=== PATIENT | female | born 1980 | race Hispanic/Latino ===

== ENCOUNTER 2025-02-12 12:42 | Emergency (ER) | payer SELFPAY ==
[~2025-02-12] VITALS: Ht 162.6 cm; Wt 99.8 kg
--- NOTE | 2025-02-12 13:01 | ERN ---
ED Note History of Present Illness Stated Complaint: PELVIC PAIN Chief Complaint: Pelvic Pain Time Seen by MD: 12:55 Dictation: PATIENT IS A 44-YEAR-OLD FEMALE HERE WITH COMPLAINTS OF HOLDING HER URINE YESTERDAY FOR MORE THAN 2 HOURS AND THEN WHEN SHE URINATED SHE SAID SHE HAD A BURNING SENSATION. SHE STATES A BURNING SENSATION HAS CONTINUED NO NAUSEA VOMITING NO FEVER NO CHILLS. SHE STATES SHE TOOK SOME MEDICATION YESTERDAY FOR PAIN NOTHING TODAY. HER PRIMARY CARE DOCTOR IS MARIBELL MONTEIRO, HAS NOT BEEN TO SEE THEM YET. Allergies: Coded Allergies: No Known Allergies (Unverified Allergy, Unknown, 02/12/25) Past Medical History Past Medical History: Kidney Stone, UTI Surgical History: None History: Not Applicable RN Note Reviewed/Agreed w/PFSH: Yes Review of System Dictation CONSTITUTIONAL: NEGATIVE EXCEPT FOR HPI HEAD/FACE: NEGATIVE EXCEPT FOR HPI EENT: NEGATIVE EXCEPT FOR HPI RESPIRATORY: NEGATIVE EXCEPT FOR HPI GASTROINTESTINAL/ABDOMINAL: NEGATIVE EXCEPT FOR HPI GENITOURINARY: NEGATIVE EXCEPT FOR HPI DYSURIA WITH SUPRAPUBIC TENDERNESS MUSCULOSKELETAL: NEGATIVE EXCEPT FOR HPI INTEGUMENTARY: NEGATIVE EXCEPT FOR HPI NEUROLOGICAL/PSYCH: NEGATIVE EXCEPT FOR HPI HEMATOLOGIC/LYMPHATIC: NEGATIVE EXCEPT FOR HPI ALL SYSTEMS NEGATIVE, EXCEPT NOTED ABOVE. 13 POINT REVIEW OF SYSTEMS ASSESSED AND ALL NEGATIVE EXCEPT FOR ABOVE. Initial Vital Sign VS Vital Signs Date Time Temp Pulse Resp B/P (MAP) Pulse Ox O2 Delivery O2 Flow Rate FiO2 02/12/25 12:46 98.8 89 20 174/92 98 Room Air 0 Physical Exam Dictation VITAL SIGNS REVIEWED GENERAL APPEARANCE: ALERT, ORIENTED X 3, MILD ACUTE DISTRESS, WELL DEVELOPED, NOURISHED. HEAD AND FACE: NON-TRAUMATIC. EYES: PERRL, PINK CONJUNCTIVAS, EYELID NO TRAUMA, ANTERIOR CHAMBER WITH ARCUS SENILIS. EARS: PINNAS INTACT AND NO SIGNS OF TRAUMA OR ERYTHEMA EAR CANALS CLEAR AND NO DISCHARGE TM NO ERYTHEMA NOSE: NO DISCHARGE, NO BLEEDING. OROPHARYNX: MOUTH NORMAL, TONGUE PINK, PHARYNX CLEAR,NO ERYTHEMA, TONSILS NO EXUDATES, NO ABSCESSES NOTED, MUCOUS MEMBRANE MOIST NECK: SUPPLE, NON-TENDER, NO THYROMEGALY, NO MASSES, NO JVD, NO BRUITS BREAST:DEFERRED CHEST:NO TENDERNESS, NO CREPITUS, NO PARADOXICAL MOVEMENT, NO RETRACTIONS LUNGS:CLEAR, WELL-VENTILATED, SYMMETRIC, NO RALES, NO WHEEZING, NO RHONCHI, NO STRIDOR, GOOD BREATH SOUNDS BILATERALLY HEART: REGULAR RATE, REGULAR RHYTHM, NO MURMUR, NO GALLOPS VASCULAR: NO PERIPHERAL EDEMA, ABDOMEN: SOFT, POSITIVE BOWEL SOUNDS, NONDISTENDED, NO GUARDING, NONTENDER, NO REBOUND, NO MASSES NO HEPATOMEGALY, NO SPLENOMEGALY, NO HAWKINS'S SIGN, NO HERNIAS. RECTAL: DEFERRED GENITAL: DEFERRED SUPRAPUBIC TENDERNESS. NEUROLOGICAL: NORMAL SPEECH, MOTOR FUNCTION INTACT, SENSORY FUNCTION INTACT MUSCULOSKELETAL: NECK NONTENDER, FULL RANGE OF MOTION, BACK NONTENDER, FULL RANGE OF MOTION, EXTREMITIES: NONTENDER, FULL RANGE OF MOTION SKIN: COLOR PINK, DRY, NO TURGOR, NO RASH, NO LACERATIONS, NO ABRASIONS, NO CONTUSIONS. LYMPHATIC: DEFERRED Results (Laboratory/Radiology) Laboratory/Radiology Laboratory Tests Test 02/12/25 13:01 Urine Color LIGHT-YELLOW (YELLOW) Urine Appearance CLEAR (CLEAR) Urine pH 6.5 (5.0-8.0) Urine Specific [place] 1.018 (1.001-1.031) Urine Protein NEGATIVE mg/dL (NEGATIVE) Urine Glucose (UA) NEGATIVE mg/dL (NEGATIVE) Urine Ketones NEGATIVE mg/dL (NEGATIVE) Urine Occult Blood SMALL (NEGATIVE) H Urine Nitrate NEGATIVE (NEGATIVE) Urine Bilirubin NEGATIVE mg/dL (NEGATIVE) Urine Urobilinogen 0.2 mg/dL (0.2-1.0) Urine Leukocyte Esterase NEGATIVE [place]/uL Urine RBC 11-25 /HPF (0-1) H Urine WBC None /HPF (0-1) Urine Squamous Epithelial Cells RARE /HPF (0-2) Urine Bacteria None /HPF (None Seen) Labs Reviewed?: Yes ED Course ED Course Orders Procedure Category Date Status Time Urinalysis Profile LAB 02/12/25 Complete 12:59 Ibuprofen 800 Mg Tab PHA 02/12/25 Complete (Motrin) 13:00 Phenazopyridine Hcl PHA 02/12/25 Complete 200 Mg Tab (Pyridium 13:00 Current Medications Medications (Trade) Dose Ordered Sig/Nicki Route PRN Reason Start Time Stop Time Status Last Admin Dose Admin Ibuprofen (moTRIN) 800 mg ONCE ONCE PO 02/12/25 13:00 02/12/25 13:01 DC 02/12/25 13:29 Phenazopyridine HCl (PYRIdium HCL 200 MG TAB) 200 mg ONCE ONCE PO 02/12/25 13:00 4/8/25 13:01 DC 02/12/25 13:29 Vital Signs Date Time Temp Pulse Resp B/P (MAP) Pulse Ox O2 Delivery O2 Flow Rate FiO2 02/12/25 12:46 98.8 89 20 174/92 98 Room Air 0 1410/PATIENT HAS MICROSCOPIC HEMATURIA ONLY NO INFECTION HOWEVER SHE ALSO HAS BLOOD PRESSURE 174/92 AND STATES WHEN I GO TO MY DOCTOR'S OFFICE OVER THE LAST COUPLE OF YEARS THEY ALWAYS TOLD ME IT IS A LITTLE HIGH BUT THEY NEVER TREATED. I ADVISED HER THAT CHRONIC HYPERTENSION WOULD AFFECT IN ORGANS AND THAT WE NEED TO TREAT THIS. I WOULD SEND HER HOME WITH A ENALAPRIL AND PYRIDIUM TOLD HER TO FOLLOW UP WITH HER DOCTOR AT [facility] Medical Decision Making MDM MEDICAL DECISION-MAKING WOUND WAS BASED ON URINALYSIS AND TREATMENT FOR DYSURIA. PATIENT STATES SHE IS IN NO PAIN AT THIS TIME SHE IS AWARE OF HER BLOOD PRESSURE NEED TO FOLLOW UP WITH HER DOCTOR IN THE NEXT 1-2 DAYS AND TAKE ENALAPRIL DIRECTED. DX & DISP Disposition: Discharge Departure Impression: Primary Impression: Uncontrolled hypertension Additional Impressions: Microscopic hematuria, Dysuria Condition: Stable Scripts Phenazopyridine HCl (Pyridium) 200 Mg Tab 200 MG PO TIDPC for 3 Days, #9 TAB TAKE WITH FOOD TO PREVENT STOMACH UPSET. Prov: ELSIE GIRARD NP 02/12/25 Enalapril Maleate (Enalapril Maleate) 10 Mg Tablet 1 TAB PO DAILY for 30 Days, #30 TAB 0 Refills Prov: ELSIE GIRARD NP 02/12/25 Additional Instructions: FOLLOW-UP WITH PRIMARY CARE PROVIDER IN 1 TO 2 DAYS. TAKE MEDICATIONS DIRECTED HERE IN THE EMERGENCY ROOM. OKAY TO CONTINUE HOME MEDICATIONS UNLESS OTHERWISE DISCUSSED DURING YOUR VISIT IN THE EMERGENCY ROOM TODAY. RETURN TO YOUR NEAREST EMERGENCY ROOM IF SYMPTOMS WORSEN OR IF THERE IS NO IMPROVEMENT. CALL 911 IF YOU NEED IMMEDIATE ASSISTANCE. TAKE TYLENOL OR MOTRIN OVER-THE- COUNTER NEEDED AND IF NO CONTRAINDICATIONS ARE PRESENT. INCREASE ORAL HYDRATION. A WOUND CULTURE OR URINE CULTURE WAS ORDERED HERE IN THE EMERGENCY ROOM DEPARTMENT PLEASE FOLLOW-UP WITH PRIMARY CARE PROVIDER AND ADVISE THEM TO GET REPEAT PORTS FROM OUR FACILITY. IF YOU HAD ANY JOJO WRAP/SPLINTS THAT WERE APPLIED HERE, PLEASE DO NOT REMOVE THEM UNTIL YOU SEE YOUR PRIMARY CARE OR SPECIALTY. TAKE ENALAPRIL DIRECTED DAILY FOR YOUR BLOOD PRESSURE. REMEMBER THE PYRIDIUM WILL TURN YOUR URINE ORANGE RED. FOLLOW UP WITH YOUR DOCTOR IN THE NEXT 1-2 DAYS AT [facility] FOR MANAGEMENT OF YOUR MICROSCOPIC HEMATURIA AND YOUR BLOOD PRESSURE. Referrals: SELF,REFERRAL (PCP) Time of Disposition: 14:13 I have reviewed the case, and I agree with, Diagnosis and Plan ELSIE GIRARD NP Feb 12, 2025 13:01
[2025-02-12] MEDS: PHENAZOpyridine HCL 200 MG TAB 200 MG TABLET PO ONE (13:29)
[2025-02-12] MEDS: ibuPROFEN 800 MG TAB PO ONE (13:29)
[2025-02-12 13:45] LABS: APPEARANCE,URINE CLEAR (CLEAR); BILIRUBIN,URINE NEGATIVE (NEGATIVE); COLOR,URINE LIGHT-YELLOW (YELLOW); GLUCOSE, URINE (UA) NEGATIVE (NEGATIVE); KETONES,URINE NEGATIVE (NEGATIVE); LEUKOCYTE ESTERASE ,URINE NEGATIVE Leu/uL (NEGATIVE); NITRATE,URINE NEGATIVE (NEGATIVE); OCCULT BLOOD,URINE SMALL (NEGATIVE); PH,URINE 6.5 (5.0-8.0); PROTEIN,URINE NEGATIVE (NEGATIVE); UROBILINOGEN,URINE 0.2 mg/dL (0.2-1.0)
[2025-02-12 13:58] LABS: ADD UA MICROSCOPIC YES
[2025-02-12 14:06] LABS: MUCUS,URINE RARE LPF (None Seen); SQUAMOUS EPITHELIAL CELL,UR RARE /HPF (0-2)
[2025-02-12] MEDS ORDERED: PHEN-847 PO (14:14)
[2025-02-12] MEDS ORDERED: ENAL-89 PO (14:14)
[2025-02-12 14:19] VITALS: BP 154/86; PULSE 85; RESP 20; TEMP 98.8; O2SAT 98
== END 2025-02-12 14:37 | disposition home or self-care (01) ==
LOC: EDH 12:42
DX: I10 Essential (primary) hypertension (principal); R31.29 Other microscopic hematuria; R30.0 Dysuria
CPT/HCPCS: 81001; 99283